=== PATIENT | male | born 1995 | race Hispanic/Latino ===

== ENCOUNTER 2019-06-12 07:13 | Emergency (ER) | payer OTHER ==
--- NOTE | 2019-06-12 07:59 | ER ---
Nurse's Notes [facility] Name: Paul Taylor Age: 24 yrs Sex: Male : 1995 Arrival Date: 06/12/2019 Time: :18 Bed 6 Private MD: Diagnosis: Strain of muscle(s) and tendon(s) of the rotator cuff of shoulder;Other sprain of right shoulder joint Presentation: 06/12 07:24 Presenting complaint: Patient states: right shoulder pain after lifting weights and the sv weight fell mostly on his right shoulder, c/o right shoulder pain. Transition of care: patient was not received from another setting of care. Onset of symptoms was June 10, 2019. Risk Assessment: Do you want to hurt yourself or someone else? Patient reports no desire to harm self or others. Initial Sepsis Screen: Does the patient meet any 2 criteria? No. Patient's initial sepsis screen is negative. Does the patient have a suspected source of infection? No. Patient's initial sepsis screen is negative. Care prior to arrival: None. 07:24 Method Of Arrival: Ambulatory sv 07:24 Acuity: NESHA 4 sv Triage Assessment: 07:27 General: Appears in no apparent distress. uncomfortable, well groomed, well developed, sv Behavior is calm, cooperative, appropriate for age. Pain: Complains of pain in right shoulder Pain currently is 6 out of 10 on a pain scale. Pain began 2-3 days ago. Is intermittent, episodic, Aggravated by increased activity, repositioning. Neuro: Level of Consciousness is awake, alert, obeys commands, Oriented to person, place, time, situation, Moves all extremities. Full function Gait is steady. Respiratory: Airway is patent Respiratory effort is even, unlabored, Respiratory pattern is regular, symmetrical. Derm: Skin is pink, warm \T\ dry. Musculoskeletal: Circulation, motion, and sensation intact. Range of motion: limited in right shoulder. Historical: - Allergies: 07:26 No Known Allergies; sv - PMHx: 07:26 None; sv - PSHx: 07:26 None; sv - Immunization history:: Flu vaccine is up to date. - Coronavirus screen:: The patient has NOT traveled to [place] in the past 14 days. Proceed with normal triage process as indicated. The patient has NOT had contact with known/suspected case of Coronavirus? Proceed with normal triage procedures. - Social history:: Smoking status: Patient denies any tobacco usage or history of. - Family history:: not pertinent. - Ebola Screening: : No symptoms or risks identified at this time. - Hospitalizations: : No recent hospitalization is reported. Screenin:26 Abuse screen: Denies threats or abuse. Denies injuries from another. Nutritional sv screening: No deficits noted. Tuberculosis screening: No symptoms or risk factors identified. Fall Risk None identified. Assessment: 08:12 Reassessment: Patient appears in no apparent distress at this time. No changes from sv previously documented assessment. Patient and/or family updated on plan of care and expected duration. Pain level reassessed. Patient is alert, oriented x 3, equal unlabored respirations, skin warm/dry/pink. Vital Signs: 07:26 BP 133 / 82; Pulse 72; Resp 16; Pulse Ox 97% ; Weight 81.65 kg; Height 5 ft. 6 in. sv (167.64 cm); Pain 6/10; 08:11 BP 129 / 69; Pulse 67; Resp 16; Pulse Ox 99% ; sv 07:26 Body Mass Index 29.05 (81.65 kg, 167.64 cm) sv ED Course: 07:18 Patient arrived in ED. ag3 07:20 Ant Sarah MD is Attending Physician. rn 07:25 Triage completed. sv 07:26 Arm band placed on Patient placed in an exam room, on a stretcher. sv 07:26 Patient has correct armband on for positive identification. Bed in low position. Call sv light in reach. Pulse ox on. NIBP on. Door closed. Head of bed elevated. 07:28 Macy Maddox, RUBÉN is Primary Nurse. sv 07:33 Awaiting for x-ray. sv 07:46 XRAY Shoulder RIGHT 2 view In Process Unspecified. EDMS 07:50 Awaiting radiology results. sv 08:12 No provider procedures requiring assistance completed. Patient did not have IV access sv during this emergency room visit. Administered Medications: No medications were administered Outcome: 07:58 Discharge ordered by . rn 08:13 Discharged to home ambulatory. 08:13 Condition: good 08:13 Discharge instructions given to patient, Instructed on discharge instructions, follow up and referral plans. Demonstrated understanding of instructions, follow-up care. 08:14 Patient left the ED. Signatures: Macy Dumont, RN RN Ant Ruiz MD MD rn Gomez, Alice ag3 Yesenia Conner, RUBÉN RN
--- NOTE | 2019-06-12 07:59 | EDPHYS ---
Physician Documentation [facility] Name: Paul Taylor Age: 24 yrs Sex: Male : 1995 Arrival Date: 06/12/2019 Time: 07:18 Bed 6 Private MD: ED Physician Ant Sraah HPI: 06/12 07:24 This 24 yrs old Male presents to ER via Unassigned with complaints of Shoulder rn Pain. 07:24 The patient or guardian complains of decreased range of motion, pain, that is acute. rn right shoulder. Onset: The symptoms/episode began/occurred just prior to arrival. Modifying factors: the symptoms are alleviated by nothing. The symptoms are aggravated by lifting weight, movement, rotation of arm. Severity of symptoms: At their worst the symptoms were mild, in the emergency department the symptoms are unchanged. The patient has not experienced similar symptoms in the past. The patient has not recently seen a physician. Reports on his way back from [facility], was weight lifting, right handed, states right shoulder gave out and weight pushed shoulder down, now has pain with ROM and lifting right arm. . Historical: - Allergies: 07:26 No Known Allergies; sv - PMHx: 07:26 None; sv - PSHx: 07:26 None; sv - Immunization history:: Flu vaccine is up to date. - Coronavirus screen:: The patient has NOT traveled to [place] in the past 14 days. Proceed with normal triage process as indicated. The patient has NOT had contact with known/suspected case of Coronavirus? Proceed with normal triage procedures. - Social history:: Smoking status: Patient denies any tobacco usage or history of. - Family history:: not pertinent. - Ebola Screening: : No symptoms or risks identified at this time. - Hospitalizations: : No recent hospitalization is reported. ROS: 07:24 Constitutional: Negative for fever, chills, and weight loss, Neck: Negative for injury, rn pain, and swelling, MS/Extremity: + right shoulder injury and pain Neuro: Negative for weakness, numbness, tingling Exam: 07:24 Constitutional: This is a well developed, well nourished patient who is awake, alert, rn and in no acute distress. Ambulatory to room without difficulty or assistance. MS/ Extremity: Pulses equal, no cyanosis. Neurovascular intact. + mild tenderness over acromioclavicular joint, no tenderness or swelling of triceps/biceps regions, no bony tenderness, no ecchymosis. Vital Signs: 07:26 BP 133 / 82; Pulse 72; Resp 16; Pulse Ox 97% ; Weight 81.65 kg; Height 5 ft. 6 in. sv (167.64 cm); Pain 6/10; 08:11 BP 129 / 69; Pulse 67; Resp 16; Pulse Ox 99% ; sv 07:26 Body Mass Index 29.05 (81.65 kg, 167.64 cm) sv MDM: 07:20 Patient medically screened. rn 07:57 Differential diagnosis: Anterior dislocation without fracture, tendonitis, shoulder rn sprain/strain, partial tear. Data reviewed: vital signs, nurses notes, radiologic studies, plain films, and as a result, I will discharge patient. Counseling: I had a detailed discussion with the patient and/or guardian regarding: the historical points, exam findings, and any diagnostic results supporting the discharge/admit diagnosis, radiology results, the need for outpatient follow up, to return to the emergency department if symptoms worsen or persist or if there are any questions or concerns that arise at home. Special discussion: I discussed with the patient/guardian in detail that at this point there is no indication for admission to the hospital. It is understood, however, that if the symptoms persist or worsen the patient needs to return immediately for re-evaluation. Further emergent ED testing is not indicated at this point in time. I discussed with the patient/guardian in detail the need to arrange with the PCP or specialist further outpatient testing, MRI. 07:59 Test interpretation: by ED physician or midlevel provider: plain radiologic studies, rn Xray right shoulder neg for acute fracture/dislocation.. 06/12 07:24 Order name: XRAY Shoulder RIGHT 2 view rn Administered Medications: No medications were administered Disposition: 06/12/19 07:58 Discharged to Home. Impression: Strain of muscle(s) and tendon(s) of the rotator cuff of shoulder, Other sprain of right shoulder joint. - Condition is Stable. - Discharge Instructions: Shoulder Sprain. - Medication Reconciliation Form, Thank You Letter, Antibiotic Education, Prescription Opioid Use, Work release form form. - Follow up: Private Physician; When: As needed; Reason: Recheck today's complaints, Re-evaluation by your physician. - Problem is new. - Symptoms are unchanged. - Notes: Rest shoulder, if pain and limited range of motion persist longer than expected get MRI right shoulder. Signatures: Dispatcher [employer] Macy King RN Ant Vega MD MD rn Harris, Amy, RN RN Corrections: (The following items were deleted from the chart) 07:27 07:24 Constitutional: Negative for fever, chills, and weight loss, MS/Extremity: + rn right shoulder injury and pain Neuro: Negative for weakness, numbness, tingling rn 08:14 07:58 06/12/2019 07:58 Discharged to Home. Impression: Strain of muscle(s) and ah tendon(s) of the rotator cuff of shoulder; Other sprain of right shoulder joint. Condition is Stable. Discharge Instructions: Shoulder Sprain. Forms are Medication Reconciliation Form, Thank You Letter, Antibiotic Education, Prescription Opioid Use. Follow up: Private Physician; When: As needed; Reason: Recheck today's complaints, Re-evaluation by your physician. Problem is new. Symptoms are unchanged. rn
[2019-06-12 08:23] VITALS: BP 129/69; O2SAT 99
--- NOTE | 2019-06-12 08:43 | RAD REPORT ---
EXAM DESCRIPTION: RAD - Shoulder Right 2 View - 06/12/2019 7:45 am CLINICAL HISTORY: PAIN COMPARISON: No comparisons FINDINGS: No fracture or dislocation seen.
== END 2019-06-12 08:14 | disposition home or self-care (01) ==
LOC: ER 07:13
DX: S43.421A Sprain of right rotator cuff capsule, initial encounter (principal); S43.491A Other sprain of right shoulder joint, initial encounter; Y93.B9 Activity, other involving muscle strengthening exercises; Y93.B3 Activity, free weights; Y92.9 Unspecified place or not applicable
CPT/HCPCS: 99283

== ENCOUNTER 2019-08-10 12:29 | Emergency (ER) | payer OTHER ==
--- NOTE | 2019-08-10 14:30 | EDPHYS ---
Physician Documentation [facility] Name: Paul Taylor Age: 24 yrs Sex: Male : 1995 Arrival Date: 08/10/2019 Time: 12:32 Bed 19 Private MD: ED Physician Darrion Reis HPI: 08/09 14:31 This 24 yrs old Male presents to ER via Ambulatory with complaints of Sore kdr Throat. 14:31 The patient presents with sore throat. The patient describes throat pain as kdr intermittent. Onset: The symptoms/episode began/occurred gradually, 4 day(s) ago. Severity of symptoms: At their worst the symptoms were mild, in the emergency department the symptoms are unchanged. Modifying factors: The symptoms are alleviated by nothing, the symptoms are aggravated by nothing, Patient's oral intake status: good unaware of sick contact. Associated signs and symptoms: The patient has no apparent associated signs or symptoms. The patient has not experienced similar symptoms in the past. The patient has not recently seen a physician. Historical: - Allergies: 12:41 No Known Allergies; ca1 - Home Meds: 12:41 None [Active]; ca1 - PMHx: 12:41 None; ca1 - PSHx: 12:41 None; ca1 - Immunization history:: Adult Immunizations up to date, Flu vaccine is up to date. - Social history:: Smoking status: Patient/guardian denies using tobacco, the patient reports quitting approximately 1 years ago. ROS: 14:31 Constitutional: Negative for fever, chills, and weight loss, Eyes: Negative for injury, kdr pain, redness, and discharge, Neck: Negative for injury, pain, and swelling, Cardiovascular: Negative for chest pain, palpitations, and edema, Respiratory: Negative for shortness of breath, cough, wheezing, and pleuritic chest pain. 14:31 ENT: Positive for ear pain, sore throat, Negative for injury or acute deformity, drainage from ear(s), foreign body sensation, Gum pain hearing loss, pulling at ears, Teeth pain tinnitus, nasal discharge, rhinorrhea, sinus congestion, sinus pain, dental pain, difficulty swallowing, difficulty handling secretions, hoarseness. Exam: 14:31 Constitutional: This is a well developed, well nourished patient who is awake, alert, kdr and in no acute distress. Head/Face: Normocephalic, atraumatic. Eyes: Pupils equal round and reactive to light, extra-ocular motions intact. Lids and lashes normal. Conjunctiva and sclera are non-icteric and not injected. Cornea within normal limits. Periorbital areas with no swelling, redness, or edema. Neck: Trachea midline, no thyromegaly or masses palpated, and no cervical lymphadenopathy. Supple, full range of motion without nuchal rigidity, or vertebral point tenderness. No Meningismus. Chest/axilla: Normal chest wall appearance and motion. Nontender with no deformity. No lesions are appreciated. Cardiovascular: Regular rate and rhythm with a normal S1 and S2. No gallops, murmurs, or rubs. Normal PMI, no JVD. No pulse deficits. 14:31 ENT: Mouth: is normal, Lips: normal, moist, Oral mucosa: normal, pink and intact, moist, abscess, that is minimal, of the left buccal mucosa and left aspect of posterior pharynx, drooling, is not appreciated, Posterior pharynx: Airway: normal, Tonsils: enlarged on the left, with erythema, no exudate, no ulcerations, Uvula: midline, swelling, that is mild, erythema, that is mild, exudate, is not appreciated, peritonsillar mass, is not appreciated, pooling of secretions, is not appreciated. Vital Signs: 12:38 BP 131 / 80; Pulse 77; Resp 18 S; Temp 98(O); Pulse Ox 98% on R/A; Weight 85.73 kg (R); ca1 Height 5 ft. 6 in. (167.64 cm) (R); Pain 2/10; 14:58 BP 122 / 74; Pulse 74; Resp 16; Temp 97.9; Pulse Ox 99% on R/A; Pain 2/10; ls4 12:38 Body Mass Index 30.51 (85.73 kg, 167.64 cm) ca1 MDM: 14:29 Patient medically screened. kdr 14:31 Data reviewed: vital signs, nurses notes, lab test result(s), radiologic studies. kdr Counseling: I had a detailed discussion with the patient and/or guardian regarding: the historical points, exam findings, and any diagnostic results supporting the discharge/admit diagnosis, lab results, the need for outpatient follow up. ED course: The patient was advised to return in 24 - 48 hours if no improvement or getting worse.. 08/09 12:41 Order name: Strep; Complete Time: 14:18 ca1 08/09 14:19 Order name: Throat Culture EDMS Administered Medications: 14:48 Drug: Augmentin 875 mg Route: PO; ls4 Disposition: 08/10/19 14:29 Discharged to Home. Impression: Peritonitis, unspecified, Peritonsillar abscess - early. - Condition is Stable. - Discharge Instructions: Peritonsillar Abscess, Peritonsillar Cellulitis. - Prescriptions for Augmentin 875- 125 mg Oral Tablet - take 1 tablet by ORAL route every 12 hours for 10 days; 20 tablet. - Medication Reconciliation Form, Thank You Letter, Antibiotic Education, Prescription Opioid Use form. - Follow up: Macy Villalba MD; When: 2 - 3 days; Reason: If symptoms return, Further diagnostic work-up, Recheck today's complaints, Continuance of care, Re-evaluation by your physician. - Problem is new. - Symptoms are unchanged. Signatures: Dispatcher [employer] EDMS Darrion Reis MD MD kdr Lyly Morgan RN RN ls4 Federica Fontaine RN RN ca1 Corrections: (The following items were deleted from the chart) 15:05 14:29 08/10/2019 14:29 Discharged to Home. Impression: Peritonitis, unspecified; ls4 Peritonsillar abscess - early. Condition is Stable. Forms are Medication Reconciliation Form, Thank You Letter, Antibiotic Education, Prescription Opioid Use. Follow up: Macy Villalba; When: 2 - 3 days; Reason: If symptoms return, Further diagnostic work-up, Recheck today's complaints, Continuance of care, Re-evaluation by your physician. Problem is new. Symptoms are unchanged. kdr
--- NOTE | 2019-08-10 14:30 | ER ---
Nurse's Notes [facility] Name: Palu Taylor Age: 24 yrs Sex: Male : 1995 Arrival Date: 08/10/2019 Time: 12:32 Bed 19 Private MD: Diagnosis: Peritonitis, unspecified;Peritonsillar abscess-early Presentation: 08/09 12:38 Chief complaint: Patient states: Tonsils severely swollen since yesterday. Denies fever ca1 and cough. reports mild pain on both ears. Been taking amox for 2 days. Coronavirus screen: Proceed with normal triage. Patient denies a cough. Patient denies shortness of breath or difficulty breathing. Patient denies measured and/or subjective temperature greater than 100.4F prior to today's visit. Patient denies travel on a cruise ship or to a country the [facility] currently lists as an affected area. Patient denies contact with known and/or suspected case of COVID-19. Ebola Screen: Patient negative for fever greater than or equal to 101.5 degrees Fahrenheit, and additional compatible Ebola Virus Disease symptoms Patient denies exposure to infectious person. Patient denies travel to an Ebola-affected area in the 21 days before illness onset. No symptoms or risks identified at this time. Initial Sepsis Screen: Does the patient meet any 2 criteria? No. Patient's initial sepsis screen is negative. Does the patient have a suspected source of infection? No. Patient's initial sepsis screen is negative. Risk Assessment: Do you want to hurt yourself or someone else? Patient reports no desire to harm self or others. Onset of symptoms was August 10, 2019. 12:38 Method Of Arrival: Ambulatory ca1 12:38 Acuity: NESHA 4 ca1 Triage Assessment: 13:42 General: Appears in no apparent distress. uncomfortable. General: Behavior is calm, ls4 cooperative. Pain: Complains of pain in left aspect of posterior pharynx and left buccal mucosa Pain currently is 2 out of 10 on a pain scale. EENT: Throat is reddened has enlarged tonsils on left Denies. Historical: - Allergies: 12:41 No Known Allergies; ca1 - Home Meds: 12:41 None [Active]; ca1 - PMHx: 12:41 None; ca1 - PSHx: 12:41 None; ca1 - Immunization history:: Adult Immunizations up to date, Flu vaccine is up to date. - Social history:: Smoking status: Patient/guardian denies using tobacco, the patient reports quitting approximately 1 years ago. Screenin:54 Abuse screen: Denies threats or abuse. Denies injuries from another. Nutritional ls4 screening: No deficits noted. Tuberculosis screening: No symptoms or risk factors identified. Fall Risk None identified. Assessment: 13:45 Cardiovascular: Capillary refill < 3 seconds Patient's skin is warm and dry. ls4 Respiratory: Airway is patent Respiratory effort is even, unlabored, Breath sounds are clear bilaterally. the patient has mild shortness of breath. Vital Signs: 12:38 BP 131 / 80; Pulse 77; Resp 18 S; Temp 98(O); Pulse Ox 98% on R/A; Weight 85.73 kg (R); ca1 Height 5 ft. 6 in. (167.64 cm) (R); Pain 2/10; 14:58 BP 122 / 74; Pulse 74; Resp 16; Temp 97.9; Pulse Ox 99% on R/A; Pain 2/10; ls4 12:38 Body Mass Index 30.51 (85.73 kg, 167.64 cm) ca1 ED Course: 12:32 Patient arrived in ED. as 12:40 Triage completed. ca1 12:41 Arm band placed on right wrist. ca1 13:06 Patient has correct armband on for positive identification. Bed in low position. Call ls4 light in reach. Side rails up X 1. Pulse ox on. NIBP on. 13:06 Verbal reassurance given. ls4 13:24 Darrion Reis MD is Attending Physician. kdr 14:17 Lyly Morgan, RUBÉN is Primary Nurse. ls4 14:29 Macy Villalba MD is Referral Physician. kdr 14:38 Throat Culture Sent. ls4 14:56 No provider procedures requiring assistance completed. Patient did not have IV access ls4 during this emergency room visit. Patient maintains SpO2 saturation greater than 95% on room air. Administered Medications: 14:48 Drug: Augmentin 875 mg Route: PO; ls4 Outcome: 14:29 Discharge ordered by . kdr 15:03 Discharged to home ambulatory. ls4 15:03 Condition: stable 15:03 Discharge instructions given to patient, Instructed on discharge instructions, follow up and referral plans. medication usage, Demonstrated understanding of instructions, follow-up care, medications, Prescriptions given X 1. 15:05 Patient left the ED. ls4 Signatures: Darrion Reis MD MD kdr Martinez, Amelia as Stewart, Lisa, RN RN ls4 Federica Fontaine RN RN ca1
[2019-08-10] MEDS ORDERED: AMOX/K CLAV 875 MG TAB ONE (14:52)
[2019-08-10 15:11] VITALS: BP 122/74; TEMP 97.9; O2SAT 99
== END 2019-08-10 15:05 | disposition home or self-care (01) ==
LOC: ER 12:29
DX: J36 Peritonsillar abscess (principal); K65.9 Peritonitis, unspecified
CPT/HCPCS: 87070; 87081; 99284